=== PATIENT | male | born 1945 | race Caucasian/White ===

== ENCOUNTER 2016-12-21 14:26 | Outpatient (CLI) | payer MEDICARE ==
[2016-12-21 17:48] LABS: BASOPHILS % (AUTO) 0.3 %; EOSINOPHILS # (AUTO) 0.1 10^3/uL (0.0-0.7); EOSINOPHILS % (AUTO) 1.5 %; HCT - HEMATOCRIT 49.3 % (42.0-52.0); HGB - HEMOGLOBIN 16.4 g/dL (14.0-18.0); LYMPHOCYTES # (AUTO) 1.1 10^3/uL (1.5-3.5); LYMPHOCYTES % (AUTO) 16.3 %; MEAN CORPUSCULAR HEMOGLOBIN 31.5 pg (27.0-31.0); MEAN CORPUSCULAR HGB CONC 33.3 g/dL (32.0-36.0); MEAN CORPUSCULAR VOLUME 94.6 fL (80.0-94.0); MEAN PLATELET VOLUME 8.4 fL (7.4-11.4); MONOCYTES # (AUTO) 0.7 10^3/uL (0.0-1.0); MONOCYTES % (AUTO) 10.4 %; NEUTROPHILS # (AUTO) 4.8 10^3/uL (1.5-6.6); NEUTROPHILS % (AUTO) 71.5 %; RED BLOOD COUNT 5.21 10^6/uL (4.70-6.10); RED CELL DISTRIBUTION WIDTH 13.1 % (12.0-15.0); UNCORRECTED WHITE BLOOD COUNT 6.6 x10^3/uL; WHITE BLOOD COUNT 6.6 x10^3/uL (4.8-10.8)
[2016-12-21 18:00] LABS: ALBUMIN/GLOBULIN RATIO 1.4 (1.0-2.2); BILIRUBIN,TOTAL 1.2 mg/dL (0.2-1.0); BUN - BLOOD UREA NITROGEN 20 mg/dL (6-20); CALCIUM 9.3 mg/dL (8.5-10.3); CARBON DIOXIDE - CO2 27 mmol/L (21-32); CHLORIDE 106 mmol/L (101-111); CHOL/HDL RATIO 3.1 (<5.0); CHOLESTEROL 141 mg/dL; GFR - MDRD 74 (>89); GLUCOSE 86 mg/dL (70-100); HDL CHOLESTEROL 45 mg/dL; LDL/HDL RATIO 1.8 (<3.6); POTASSIUM 4.5 mmol/L (3.5-5.0); SODIUM 139 mmol/L (135-145); TOTAL PROTEIN 7.5 g/dL (6.7-8.2); TRIGLYCERIDES 87 mg/dL; VLDL CHOLESTEROL 17 mg/dL
== END 2016-12-21 14:27 | disposition home or self-care (01) ==
LOC: LAB.F 14:26
PROVIDERS: ATTEND Internal Medicine
DX: Z12.5 Encounter for screening for malignant neoplasm of prostate (principal); K21.9 Gastro-esophageal reflux disease without esophagitis; E78.2 Mixed hyperlipidemia; Z79.899 Other long term (current) drug therapy
CPT/HCPCS: 36415; 80053; 80061; 85025; G0103; 84153

== ENCOUNTER 2017-04-22 11:26 | Outpatient (CLI) | payer MEDICARE ==
[2017-04-22 18:23] LABS: PSA FREE 0.553 ng/mL (0.16-2.81)
[2017-04-22 18:24] LABS: PSA TOTAL 1.97 ng/mL (0.000-2.000)
== END 2017-04-22 11:27 | disposition home or self-care (01) ==
LOC: LAB.F 11:26
PROVIDERS: ATTEND Internal Medicine
DX: R89.9 Unspecified abnormal finding in specimens from other organs, systems and tissues (principal)
CPT/HCPCS: 36415; 84153; 84154

== ENCOUNTER 2018-06-19 09:59 | Outpatient (CLI) | payer MEDICARE ==
[2018-06-19 18:29] LABS: BASOPHILS % (AUTO) 0.9 %; EOSINOPHILS # (AUTO) 0.2 10^3/uL (0.0-0.7); EOSINOPHILS % (AUTO) 4.4 %; HGB - HEMOGLOBIN 15.6 g/dL (14.0-18.0); LYMPHOCYTES # (AUTO) 1.2 10^3/uL (1.5-3.5); LYMPHOCYTES % (AUTO) 33.3 %; MEAN CORPUSCULAR HEMOGLOBIN 31.8 pg (27.0-31.0); MEAN CORPUSCULAR HGB CONC 32.7 g/dL (32.0-36.0); MEAN CORPUSCULAR VOLUME 97.2 fL (80.0-94.0); MEAN PLATELET VOLUME 8.3 fL (7.4-11.4); MONOCYTES # (AUTO) 0.4 10^3/uL (0.0-1.0); MONOCYTES % (AUTO) 12.6 %; NEUTROPHILS # (AUTO) 1.7 10^3/uL (1.5-6.6); NEUTROPHILS % (AUTO) 48.8 %; PLT - PLATELET COUNT 248 10^3/uL (130-450); RED CELL DISTRIBUTION WIDTH 13.1 % (12.0-15.0); WHITE BLOOD COUNT 3.6 x10^3/uL (4.8-10.8)
[2018-06-19 18:55] LABS: ALBUMIN/GLOBULIN RATIO 2.2 (1.0-2.2); BILIRUBIN,TOTAL 0.8 mg/dL (0.2-1.0); CREATININE 0.9 mg/dL (0.6-1.2); TOTAL PROTEIN 5.8 g/dL (6.7-8.2)
== END 2018-06-19 10:00 | disposition home or self-care (01) ==
LOC: LAB.F 09:59
PROVIDERS: ATTEND Internal Medicine
DX: R03.0 Elevated blood-pressure reading, without diagnosis of hypertension (principal); D12.6 Benign neoplasm of colon, unspecified; K21.9 Gastro-esophageal reflux disease without esophagitis; Z12.5 Encounter for screening for malignant neoplasm of prostate
CPT/HCPCS: 36415; 80053; 84153; 85025

== ENCOUNTER 2020-11-13 10:58 | Outpatient (CLI) | payer BC, MEDICARE ==
--- NOTE | 2020-11-13 13:20 | Ultrasound Report ---
PROCEDURE: Aorta Screening INDICATIONS: SCREENING FOR CARDIOVASCULAR DISORDERS TECHNIQUE: Real time scanning was performed of the aorta and iliac arteries, with image documentatio n. COMPARISON: None FINDINGS: Aorta: Proximal aortic diameter measures 2.6 x 2.6 cm. Mid-aorta measures 2.2 x 2.3 cm. Distal aor tic diameter is 1.7 x 1.8 cm. A small amount of plaque is noted in the aortic bifurcation. Iliac arteries: Right common iliac artery measures 1.1 x 1.2 cm. Left common iliac artery measures 1.2 x 1.2 cm. IMPRESSION: No ultrasound evidence of abdominal aortic aneurysm. Reviewed by: Sathish Da Silva on 11/13/2020 1:18 PM PDT Approved by: Sathish Da Silva on 11/13/2020 1:18 PM PDT Station ID: [id number]
== END 2020-11-13 10:59 | disposition home or self-care (01) ==
LOC: DI 10:58
PROVIDERS: ATTEND Registered Nurse
DX: Z13.6 Encounter for screening for cardiovascular disorders (principal)

== ENCOUNTER 2022-06-29 12:10 | Outpatient (CLI) | payer MEDICARE ==
[2022-06-29] MEDS ORDERED: DIATRIZOATE MEGLU/DIATRIZO SOD 30 ML BOTTLE PO ONE ×2 (12:24→18:30)
[2022-06-29] MEDS ORDERED: iohexoL-300 100 ML VIAL ONE (12:24)
[2022-06-29] MEDS ORDERED: iohexoL-300 100 ML VIAL IVP ONE (18:11)
--- NOTE | 2022-06-30 15:53 | CT Report ---
PROCEDURE: ABDOMEN/PELVIS W INDICATIONS: ABD PAIN CONTRAST: Omni 300 100ml TECHNIQUE: After the administration of IV and oral contrast, 5 mm thick sections acquired from the diaphragms to the symphysis. 5 mm thick coronal and sagittal reformats were acquired. For radiation dose reducti on, the following was used: automated exposure control, adjustment of mA and/or kV according to yajaira ent size. COMPARISON: None. FINDINGS: Image quality: Excellent. ABDOMEN: Lung bases: 2 mm solid nodules are seen in anterolateral left lung base series 5 images 4 and 14. Bib asilar dependent atelectasis is also seen. Heart size is normal. Solid organs: Liver and spleen are normal in size and enhancement. Gallbladder is within normal cat its. Biliary system is non dilated. Pancreas enhances normally. No adrenal nodules. Kidneys demon strate normal size and enhancement, without hydronephrosis. Peritoneum and bowel: There is no bowel obstruction. No gastric or small bowel wall thickening. Fecal stasis in the ascending colon, transverse colon and ascending colon is seen. There is circumferentia l wall thickening involving mid to distal sigmoid colon with markedly narrowed sigmoid colon lumen. S igmoid diverticulosis is also seen. No significant pericolonic fat stranding is noted. No abscess col lection. No free fluid or free air. Nodes and vessels: No retroperitoneal or mesenteric adenopathy by size criteria. Aorta and inferior vena cava are normal in size. Miscellaneous: No ventral hernias. PELVIS: Genitourinary: Bladder wall thickness is normal. Miscellaneous: No inguinal hernias or adenopathy. Bones: No suspicious bony lesions. No vertebral body compression fractures. IMPRESSION: 1. Long segment of circumferential wall thickening involving mid to distal sigmoid colon in left lowe r quadrant. Significant narrowing of sigmoid colon lumen at this level. Finding is concerning for seq uela from prior sigmoid diverticulitis versus circumferential sigmoid colon wall mass. GI correlation is recommended. 2. No other area of abnormal bowel wall thickening. No bowel obstruction. Mild constipation involving ascending, transverse and descending colon. 3. 2 tiny 2 mm solid nodule seen in left lingula segment near left lung base. Bibasilar dependent ate lectasis. If indicated, CT of chest can be done for further evaluation. Reviewed by: José Lawson MD on 06/30/2022 3:52 PM PST Approved by: José Lawson MD on 06/30/2022 3:52 PM [facility] Station ID: [id number]
== END 2022-06-29 12:11 | disposition home or self-care (01) ==
LOC: DI 12:10
PROVIDERS: ATTEND Registered Nurse
DX: R93.3 Abnormal findings on diagnostic imaging of other parts of digestive tract (principal); K59.00 Constipation, unspecified; R91.8 Other nonspecific abnormal finding of lung field; J98.11 Atelectasis
CPT/HCPCS: 74177; Q9963; Q9967

== ENCOUNTER 2022-08-19 11:06 | Day surgery (SDC) | payer MEDICARE ==
[2022-08-19] MEDS ORDERED: LACTATED RINGERS 1,000 ML IV ONE (11:10)
[2022-08-19] MEDS ORDERED: PROPOFOL 500 MG/50 ML 500 MG/50 ML VIAL ONE (13:06)
--- NOTE | 2022-08-19 13:09 | ANESTHESIA ---
Pre-Anesthesia VS, & Labs - Diagnosis screening - Procedure colonoscopy Vital Signs: Temp Pulse Resp BP Pulse Ox O2 Flow Rate 36.4 C L 77 16 150/102 H 99 08/19/22 11:16 08/19/22 11:16 08/19/22 11:16 08/19/22 11:16 08/19/22 11:16 Height: 5 ft 10 in Weight (kg): 67 kg Body Mass Index: 21.2 BMI Classification: Normal - NPO >8 hours Home Medications and Allergies Home Medications: Ambulatory Orders No Known Home Medications 08/18/22 No Known Home Medications 08/18/22 Allergies/Adverse Reactions: Allergies Allergy/AdvReac Type Severity Reaction Status Date / Time No Known Drug Allergies Allergy Verified 08/18/22 11:36 Anes History & Medical History - Anesthetic History Anesthesia Complications: reports: No previous complications Family history of Anesthesia Complications: Denies Family history of Malignant Hyperthermia: Denies - Medical History Cardiovascular: reports: None Pulmonary: reports: None Gastrointestinal: reports: Colon polyps, Other Urinary: reports: None Musculoskeletal: reports: Osteoarthritis Endocrine/Autoimmune: reports: None Skin: reports: None - Surgical History General: reports: Colonoscopy Exam General: Alert, Oriented x3, Cooperative Dental: WNL Mouth Openin Fingerbreadth Neck Mobility: Normal Mallampati classification: I Thyromental Distance: 4-6 cm Respiratory: Lungs clear Cardiovascular: Regular rate Plan Anesthesia Type: General, Total IV Consent for Procedure(s) Verified and Reviewed: Yes Code Status: Attempt Resuscitation ASA classification: 2-Mild systemic disease Is this case an emergency?: No
[2022-08-19] MEDS ORDERED: LACTATED RINGERS 100 ML IV ONE (13:48)
[2022-08-19 15:02] VITALS: BP 106/66
--- NOTE | 2022-08-19 17:49 | ANESTHESIA POST OP EVALUATION ---
Anesthesia Post Eval - Post Anesthesia Eval Vitals: Last Vital Signs Temp 36.4 C L 08/19/22 14:45 Pulse 70 08/19/22 14:45 Resp 16 08/19/22 14:45 BP 106/66 08/19/22 14:45 Pulse Ox 99 08/19/22 14:45 O2 Flow Rate CV Function Including HR & BP: Stable Pain Control: Satisfactory Nausea & Vomiting: Negative Mental Status: Baseline Respiratory Status: Airway Patent Hydration Status: Satisfactory Anesthesia Complications: None
== END 2022-08-19 11:07 | disposition home or self-care (01) ==
LOC: SDS 11:06
PROVIDERS: ATTEND Surgery
PROC: 0DBN8ZX Excision of Sigmoid Colon, Via Natural or Artificial Opening Endoscopic, Diagnostic (ICD-10-PCS; principal; 2022-08-19 12:00)
DX: Z12.11 Encounter for screening for malignant neoplasm of colon (principal); K52.89 Other specified noninfective gastroenteritis and colitis; K57.30 Diverticulosis of large intestine without perforation or abscess without bleeding
CPT/HCPCS: 45380; J7120

== ENCOUNTER 2023-04-15 09:30 | Outpatient (CLI) | payer MEDICARE ==
--- NOTE | 2023-04-15 19:15 | Ultrasound Report ---
PROCEDURE: Head or Neck Soft Tissue INDICATIONS: GOITER TECHNIQUE: Real-time scanning was performed of the thyroid gland, with image documentation. COMPARISON: None FINDINGS: Right: Thyroid lobe measures 5.4 x 1.8 x 1.2 cm, and is homogeneous in echotexture. Left: Thyroid lobe measures 4.5 x 1.8 x 1.6 cm, and is homogenous in echotexture. Isthmus: 4 mm thick. Unremarkable thyroid echotexture IMPRESSION: Unremarkable thyroid ultrasound Reviewed by: Meek Patel MD on 04/15/2023 6:14 PM [facility] Approved by: Meek Patel MD on 04/15/2023 6:14 PM [facility] Station ID: [id number]
== END 2023-04-15 09:31 | disposition home or self-care (01) ==
LOC: DI 09:30
PROVIDERS: ATTEND Nurse Practitioner Family
DX: E04.2 Nontoxic multinodular goiter (principal)